=== PATIENT | male | born 2005 | race African-American/Black ===

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

== ENCOUNTER 2024-11-07 09:04 | Emergency (ER) | payer BC ==
[2024-11-07 09:13] VITALS: BP 134/76; PULSE 62; RESP 15; TEMP 98.4; BMI 26.4
[2024-11-07] MEDS ORDERED: IBUPROFEN 400 MG TABLET (FP) PO ONE (09:26)
[2024-11-07] MEDS: IBUPROFEN 400 MG TABLET (FP) PO ONE (10:08)
== END 2024-11-07 10:09 | disposition home or self-care (01) ==
LOC: FER 09:04
DX: M79.641 Pain in right hand (principal); W21.03XA Struck by baseball, initial encounter; Y93.64 Activity, baseball
CPT/HCPCS: 73110-TC-RT-FY; 73130-TC-RT-FY; 99283-25